=== PATIENT | male | born 1950 | race Caucasian/White ===

== ENCOUNTER 2017-07-06 08:20 | Day surgery (SDC) | payer MEDICARE ==
[2017-06-24 10:20] LABS: HEMATOCRIT 50.4 % (37.9-51.0); HEMOGLOBIN 17.1 g/dL (13.5-17.0); HGB HCT DIFFERENCE 0.9; MEAN CORPUSCULAR HEMOGLOBIN 30.6 pg (27.0-33.4); MEAN CORPUSCULAR HGB CONC 33.9 g/dL (32.0-36.0); MEAN CORPUSCULAR VOLUME 91 fl (80-97); RED BLOOD COUNT 5.57 10^6/uL (4.35-5.55); RED CELL DISTRIBUTION WIDTH 13.1 % (11.5-14.0); WHITE BLOOD COUNT 9.1 10^3/uL (4.0-10.5)
[2017-06-24 10:28] LABS: PARTIAL THROMBOPLASTIN TIME 34.4 SEC (23.5-35.8); PROTHROMBIN TIME 12.6 SEC (11.4-15.4)
--- NOTE | 2017-06-24 21:20 | EKG REPORT ---
SEVERITY:- NORMAL ECG - SINUS RHYTHM : Confirmed by: Benjamin El 24-Jun-2017 21:20:11
[~2017-07-06 08:20] MED LIST: CEFAZOLIN 1 GM/D5W RTU 1 GM/50 ML RTUPB IV PRN; RINGERS SOLUTION,LACTATED 1,000 ML IV PRN
[2017-07-06] MEDS ORDERED: LIDOCAINE 2%/EPINEPHRINE INJ 20 ML VIAL ONE (08:33)
[2017-07-06] MEDS ORDERED: SODIUM BICARBONATE 8.4% INJ 50 MEQ/50 ML DISP.SYRIN ONE ×2 (08:33→08:40)
[2017-07-06] MEDS ORDERED: SODIUM BICARBONATE 0 ML IV ONE (08:34)
[2017-07-06] MEDS ORDERED: POVIDONE-IODINE 5% OPH PREP SOLN 30 ML ONE (08:42)
[2017-07-06] MEDS ORDERED: MIDAZOLAM 2 MG/2 ML INJ ONE ×2 (10:38)
[2017-07-06] MEDS ORDERED: FENTANYL CITRATE INJ/PF 100 MCG/2 ML AMPUL ONE (10:38)
[2017-07-06] MEDS ORDERED: ONDANSETRON HCL INJ/PF 4 MG/2 ML SDV ONE (10:38)
[2017-07-06] MEDS ORDERED: PROPOFOL INJ 200 MG/20 ML VIAL IV ONE (10:39)
[2017-07-06] MEDS ORDERED: DEXMEDETOMIDINE INJ 80 MCG/20 ML VIAL IV ONE (10:39)
[2017-07-06] MEDS ORDERED: DIPHENHYDRAMINE HCL 50 MG/ML VIAL IV PRN (11:16)
[2017-07-06] MEDS ORDERED: FENTANYL CITRATE INJ/PF 100 MCG/2 ML AMPUL IV PRN ×2 (11:16)
[2017-07-06] MEDS ORDERED: PROMETHAZINE HCL INJ 25 MG/1 ML VIAL IV PRN (11:16)
[2017-07-06] MEDS ORDERED: MORPHINE SULFATE 10 MG/ML INJ IV PRN (11:16)
[2017-07-06] MEDS ORDERED: MEPERIDINE HCL/PF INJ 25 MG/1 ML DISP.SYRIN IV PRN (11:16)
--- NOTE | 2017-07-06 12:37 | Operative Report ---
Operative Report DATE OF SURGERY: 07/06/17 PREOPERATIVE DIAGNOSIS: Basal cell carcinoma of the right lateral sidewall of the nose POSTOPERATIVE DIAGNOSIS: Same OPERATION: Excision of basal cell carcinoma of the right lateral wall of the nose with frozen section margin control and reconstruction with a nasal cheek sliding advancement flap SURGEON: HOWARD GONZALES ANESTHESIA: LMAC TISSUE REMOVED OR ALTERED: Basal cell carcinoma COMPLICATIONS: None ESTIMATED BLOOD LOSS: Minimal PROCEDURE: Patient seen and was marked prior to being brought into the operating room. Patient was brought into the operating room and placed on the operating room table in a [supine] position. Patient was then prepped with a Betadine scrub and Betadine solution and draped in a sterile and aseptic manner. The area was then marked. 12 O'clock was marked towards the dorsum of the nose 3 O'clock was marked towards the ala 6:00 was marked towards the cheek 9:00 was marked towards the medial canthus The area was then anesthetized with 2% lidocaine with epinephrine and bicarbonate for its anesthetic and hemostatic effects. The area was then excised and marked at 12:00. The specimen was sent for frozen section. The results came back that the deep and lateral margins were free. We had considered a primary closure but this would go against the natural relaxed skin tension lines. A primary closure would be too tight and would have increased chance of dehiscence. A flap was necessary to design so that it would not put tension on the lower eyelid and cause ectropion. Also the design needed to minimize any puckering of the lower eyelid and medial canthal skin. Doing a direct primary closure would increase the risk of eyelid problems. This will leave more of a scar so we decided to use a lateral nasal cheek sliding advancement flap reconstruction which would camouflage the scar better and take tension off of the closure so that would be less chances of complications. Then went ahead and outlined the flap and anesthetized it. Then incised the flap and developed a flap maintaining the subdermal plexus. Then we undermined 360 to allow for plate like scarring and minimize trap door deformity. Throughout the case hemostasis was achieved with the bipolar. We then sutured the flap into its new position using 5-0 Vicryl for the subcutaneous and deep dermis. Skin was closed with a 6-0 interrupted Prolene sutures . We then applied tincture benzoin and Steri-Strips followed by a light pressure dressing. Patient was then reversed from anesthesia and taken to the [facility] for recovery. The patient tolerated well. There were no complications. Lesion size was approximately 1.1 x 1.1 cm please see pathology for actual size. Portions of this note may be dictated using [employer] voice recognition software. Occasional variations and spelling and vocabulary could be possible and are unintentional. Additionally, there is a chance that some errors may not be caught or corrected. Please notify the offer of any discrepancies noted or if any statements are unclear. Subjective: No complaints Objective: Vital signs stable afebrile No bleeding Dressing intact Assessment and plan: Doing well. Elevate the operative site. Resume medications. Take antibiotics for 1 day Follow-up Full instructions were given to the patient and family and they understand Portions of this note may be dictated using [employer] voice recognition software. Occasional variations and spelling and vocabulary could be possible and are unintentional. Additionally, there is a chance that some errors may not be caught or corrected. Please notify the offer of any discrepancies noted or if any statements are unclear.
--- NOTE | 2017-07-06 12:39 | PDOC DISCHARGE SUMMARY ---
Discharge Summary (SDC) - Discharge Final Diagnosis: Basal cell carcinoma of the lateral nasal wall Date of Surgery: 07/06/17 Condition: Good Referrals: SEVERIANO SHAW MD [Primary Care Provider] - Discharge Diet: As Tolerated Discharge Activity: Activity As Tolerated - Keep head elevated. Do not do any heavy lifting or straining. Do not do any excessive bending. Report the Following to Your Physician Immediately: Unusual Bleeding - Do not do any bending or straining. Keep head elevated.
[2017-07-06 15:54] VITALS: BP 123/74
== END 2017-07-06 14:15 | disposition home or self-care (01) ==
LOC: OROUT 08:20
PROVIDERS: ATTEND Plastic Surgery
PROC: 0HB1XZZ Excision of Face Skin, External Approach (ICD-10-PCS; principal; 2017-07-06 10:30)
DX: C44.391 Other specified malignant neoplasm of skin of nose (principal); M19.90 Unspecified osteoarthritis, unspecified site; D23.39 Other benign neoplasm of skin of other parts of face; Z79.899 Other long term (current) drug therapy; Z79.1 Long term (current) use of non-steroidal anti-inflammatories (NSAID)
CPT/HCPCS: 93005; 36415; 85027; 85610; 85730; 88305 ×2; 88331 ×2; 93010; 14060; J2250; J0690; J3010; J3490 ×4; J2405; J2704; 300